=== PATIENT | female | born 1945 | race Caucasian/White ===

== ENCOUNTER 2023-11-12 13:36 | Emergency (ER) | payer MEDICARE, OTHER ==
[2023-11-12] MEDS ORDERED: Boostrix 0.5 ML (Tdap) VIAL (>/=7 yrs of age) ONE (14:05)
[2023-11-12] MEDS ORDERED: Lidocaine 1% (PF) 30 ML VIAL ONE (14:05)
[2023-11-12] MEDS ORDERED: Bacitracin 1 PK ONE (15:52)
== END 2023-11-12 16:12 | disposition home or self-care (01) ==
LOC: MADERS 13:36
DX: S81.812A Laceration without foreign body, left lower leg, initial encounter (principal); I10 Essential (primary) hypertension; Z23 Encounter for immunization; W26.8XXA Contact with other sharp object(s), not elsewhere classified, initial encounter
CPT/HCPCS: 12002; 90715; 99282; J2001